=== PATIENT | female | born 2000 | race Hispanic/Latino ===

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

== ENCOUNTER 2021-02-20 14:19 | Outpatient (CLI) | payer MEDICAID ==
[~2021-02-20] VITALS: Ht 154.9 cm; Wt 69.9 kg
[2021-02-20 14:24] VITALS: BP 103/60
[2021-02-20] MEDS: LACTATED RINGERS 1000ML 1,000 ML IV SCH ×2 (15:20→16:10)
[2021-02-20] MEDS ORDERED: PROMETHAZINE HCL 25 MG/ML 1ML AMPULE IM ONE (16:00)
[2021-02-20 16:15] LABS: APPEARANCE,URINE Cloudy (CLEAR); BILIRUBIN,URINE Negative (NEGATIVE); COLOR,URINE Dark Yellow (YELLOW); GLUCOSE, URINE (UA) Negative (NEGATIVE); KETONES,URINE 15 mg/dL (NEGATIVE); LEUKOCYTE ESTERASE ,URINE Moderate (NEGATIVE); NITRATE,URINE Negative (NEGATIVE); OCCULT BLOOD,URINE Nonhemolyzed Trace (NEGATIVE); PH,URINE 5.5 (5.0-8.0); PROTEIN,URINE Trace mg/dL (NEGATIVE)
[2021-02-20 16:24] LABS: BACTERIA,URINE Few /HPF (None Seen); YEAST,URINE BUDDING Few /HPF (None Seen)
[2021-02-20 16:25] LABS: MUCUS,URINE Few LPF (None Seen); SQUAMOUS EPITHELIAL CELL,UR Moderate /HPF (0-2)
[2021-04-02] MEDS ORDERED: PREN1TAB80 PO (04:04)
== END 2021-02-20 18:00 | disposition home or self-care (01) ==
LOC: EDH 14:19 → UNDOADMOB 14:20 → LDH 14:20 → EDSTATUS 17:37 → UNDODISOB 18:00 → DAH 18:00
PROVIDERS: ATTEND Obstetrics & Gynecology
DX: O26.893 Other specified pregnancy related conditions, third trimester (principal); R10.9 Unspecified abdominal pain; Z3A.32 32 weeks gestation of pregnancy
CPT/HCPCS: 59025; 81001; 87088; 96360; 96361; 96372; J2550; J7120; G0378; G0379